=== PATIENT | female | born 1975 | race Native Hawaiian/Other Pacific Islander ===

== ENCOUNTER 2021-11-04 15:29 | Outpatient (CLI) | payer OTHER ==
[~2021-11-04 15:29] MED LIST: CELEXA40 MG PO; GABA300C2 PO; PANT40TA PO; TEMA30CA18 PO
[2021-11-04 15:54] LABS: PLATELET COUNT 312 K/uL (152-353)
[2021-11-04 15:55] LABS: POTASSIUM 3.4 mmol/L (3.6-5.2)
== END 2021-11-04 19:04 | disposition home or self-care (01) ==
LOC: LABW 15:29
PROVIDERS: ATTEND Nurse Practitioner
DX: R10.11 Right upper quadrant pain (principal)
CPT/HCPCS: 36415; 80053; 80061; 82150; 83690; 85027